=== PATIENT | female | born 1950 | race Two or more races ===

== ENCOUNTER → 2017-03-12 | Outpatient (CLI) | payer OTHER ==
--- NOTE | ~2017-03-12 | MY29 ---
[facility] A Service of [facility] & [facility] RADIOLOGY TEXT RESULTS PATIENT: LEXY LYONS LOCATION: [facility] : 54 UNIT #: [id number] AGE: [address]: GERRY CORTEZ APRN SEX: F ORDER DR: [id number] [facility] [address] [place], [place] [address] [id number] O MR#: [id number] #: [id number] NAME: LEXY LYONS : 1950 SEX: F STUDY DATE/TIME: 03/12/2017 12:30 UNIT: [facility] ROOM: STUDY DESCRIPTION: MY TRUNG SCREENING W/ CAD BILAT Attending Physician: Gerry Cortez Referring Physician: Gerry Cortez Ordering Physician: Saul Cortez M.D. Primary Care Physician: Gerry Cortez MEDICAL IMAGING REPORT This report is preliminary unless electronic signature is present EXAM Digital screening mammogram, 03/12/2017, [facility]. HISTORY 67-year-old woman no risk elevation. Annual screen. COMPARISON MAMMOGRAMS [facility], 02/16/2014. FINDINGS Digital imaging of each breast was completed utilizing screening protocol. Review includes FDA-approved CAD device. Breast parenchyma is heterogeneously dense with dominant parenchyma is stable in the upper outer quadrant of the left breast. Single well-circumscribed 12 mm nodule is stable in the left breast transition anterior and middle third. Mild duct prominence is noted bilaterally and stable. There is no interval occurring mass. I see no suspicious microcalcifications and no suspicious architectural deformity. IMPRESSION Stable benign mammogram. Annual screening recommended. Patients over the age of 40 are entered into a reminder system with target due date for the next mammogram. BIRADS: 2 Benign finding. Dictated by... Victor Manuel Quezada M.D. THIS IS AN ELECTRONICALLY VERIFIED REPORT Victor Manuel Quezada M.D. at 03/13/2017 3:55 PM JBB/bd [facility] A Service of [facility] & [facility] RADIOLOGY TEXT RESULTS PATIENT: LEXY LYONS LOCATION: [facility] : 54 UNIT #: [id number] AGE: [address]: GERRY CORTEZ APRN SEX: F ORDER DR: TD: 03/13/2017 14:59 JOB #: [id number] MEDICAL IMAGING REPORT Page 1 of 1 COPY
== END | disposition home or self-care (01) ==
LOC: CWCC 12:05
DX: Z12.31 Encounter for screening mammogram for malignant neoplasm of breast (principal)
CPT/HCPCS: G0202